=== PATIENT | female | born 1930 | race Caucasian/White ===

== ENCOUNTER 2018-02-18 10:07 | Observation (INO) | payer MEDICARE ==
[2018-02-18 11:06] LABS: #Lymphocytes 0.8 thou/uL (1.20-3.40); #Monocytes 0.6 thou/uL (0.11-0.59); #Neutrophils 8.7 thou/uL (1.40-6.50); %Basophils 0.2 % (0.0-1.0); %Eosinophils 0.1 % (0.0-10.0); %Lymphocytes 7.4 % (21.0-51.0); %Monocytes 6.4 % (0.0-10.0); %Neutrophils 85.9 % (42.0-75.0); Hemoglobin 13.8 g/dL (12.0-16.0); Mean Corpuscular HGB CONC 32.6 g/dL (32.0-36.0); Mean Corpuscular Hemoglobin 30.9 pg (27.0-31.0); Mean Platelet Volume 5.8 fL (7.4-10.4); Platelet Count 274 thou/uL (130-400); Red Blood Cell (RBC) Count 4.47 mill/uL (4.20-5.40); White Blood Cell (WBC) Count 10.1 thou/uL (4.8-10.8)
--- NOTE | 2018-02-18 11:06 | CT ---
CONTRAST ENHANCED CTA CAROTID ARTERIES WELL INTRACRANIAL CTA: HISTORY: Patient with stroke, unable to lift right arm. FINDINGS: Contrast-enhanced CTA images carotid arteries and intracranial CTA performed. Two-D and 3D reconstru cted images performed on an independent 3D work station. Images demonstrate ACDF plates and screws fusing the C4, 5, and 6 levels. Vertebral bodies are unremarkable. Multilevel mid lumbar facet degenerative changes seen. The soft tissue neck CT is unremarkable. CTA CAROTID: The aortic arch is unremarkable. The right brachiocephalic artery is unremarkable. The right and left common carotid arteries are unremarkable without evidence of significant stenosis. There is some moderate atherosclerotic plaque calcified and noncalcified in the left distal carotid and proximal left ICA and minimal calcified plaque in the right ICA and distal bulb. This results i n approximately 30-40% left distal CCA disease. No significant right-sided stenosis seen. Both vertebral arteries are patent. INTRACRANIAL CTA: The distal internal carotid arteries as well as supraclinoid ICAs are patent. The JAREK, MCA, and vert ebrobasilar arteries are unremarkable. The left hemispheric distal branches appear to be fairly symm etric. IMPRESSION: 1. Normal intracranial CTA. 2. Mild to moderate left distal common carotid artery and proximal left internal carotid artery dise ase. Findings discussed with Dr. Honeycutt at 10:44 a.m. on 02/18/18. CODE CR POS: HEATHER
[2018-02-18 11:21] LABS: ALT (SGPT) 24 U/L (8-55); AST (SGOT) 35 U/L (5-34); Albumin 4.2 g/dL (3.4-4.8); Alkaline Phosphatase 36 U/L (40-150); Anion Gap 13 mmol/L (10-20); BUN (Urea Nitrogen) 15 mg/dL (9.8-20.1); Bilirubin, Total 1.1 mg/dL (0.2-1.2); Calc. Creatinine Clearance 0 mL/min (70-130); Calcium 9.5 mg/dL (7.8-10.44); Carbon Dioxide 25 mmol/L (23-31); Chloride 101 mmol/L (98-107); Estimated GFR-MDRD 81; Globulin 2.9 g/dL (2.4-3.5); Glucose 94 mg/dL (83-110); Protein, Total 7.1 g/dL (6.0-8.3); Sodium 135 mmol/L (136-145)
[2018-02-18] MEDS ORDERED: ISOVUE-370 76%-LOCM 1 ML ONE (13:50)
--- NOTE | 2018-02-18 14:05 | HP ---
PRIMARY CARE PHYSICIAN: Dr. Cesar Handy REASON FOR ADMISSION: Weakness/syncope/dizziness. HISTORY OF PRESENT ILLNESS: An 87-year-old female who woke up this morning, at that time the patient was feeling generalized weak. She tried to get out of bed and she felt like she was going to pass o ut and that is why she sat down on the floor. Subsequently, the patient was having difficulty standi ng. She was feeling weak all over. She tried to scoot to the bed, but she was not able to do that. She was not able to use her right side. The patient reports that she has weakness on the right side for a period of time and she attributes to her arthritis. She also has difficulty combing and brush ing with the right hand because she cannot move right upper extremity all the way up. She gets pain in her right shoulder. She does have arthritis diffusely. She denied any isolated weakness on the r ight side. She does have similar problem on the left side, but less severe than on the right side. She was not having any palpitation. She felt dizziness as about going to pass out, but she did not f all. She did not injure. She did not have any headaches. She did not have any slurred speech. She denied any fever or chills. She denies any UTI symptoms. She denies any constipation, diarrhea, me winston or hematochezia. Paramedics were called and the patient was seen by paramedics and they found right-sided arm weakness and that is why they were worried about stroke and stroke protocol was activated from the ambulance and the patient had CT brain with a CT angiography that was negative for any stroke. CT angiography showed mild to moderate left distal common carotid artery and proximal left internal carotid artery d isease. The patient did not have any speech problem. Currently, patient is feeling back to normal. The patient does have a similar problem in 2014. At that time LINQ recorder was placed. Subsequentl y, the patient had seen meat cooler and per patient, she was told that everything was fine and patie nt also gives a history that for 1 year the meat cooler are not getting any recording. ALLERGIES: No known drug allergy. CURRENT HOME MEDICATIONS: Gabapentin 300 mg p.o. 3 times daily, amlodipine 5 mg p.o. daily, benazepr il 10 mg p.o. daily, aspirin 81 mg p.o. daily. REVIEW OF SYSTEMS: The following complete review of systems was negative, unless otherwise mentioned in the HPI or below: Constitutional: Weight loss or gain, ability to conduct usual activities. Skin: Rash, itching. Eyes: Double vision, pain. ENT/Mouth: Nose bleeding, neck stiffness, pain, tenderness. Cardiovascular: Palpitations, dyspnea on exertion, orthopnea. Respiratory: Shortness of breath, wheezing, cough, hemoptysis, fever or night sweats. Gastrointestinal: Poor appetite, abdominal pain, heartburn, nausea, vomiting, constipation, or diarrhea. Genitourinary: Urgency, frequency, dysuria, nocturia. Musculoskeletal: Pain, swelling. Neurologic/Psychiatric: Anxiety, depression. Allergy/Immunologic: Skin rash, bleeding tendency. Please see my HPI for pertinent positive and negative. All other review of systems reviewed and nega tive except as mentioned in the HPI. PAST MEDICAL HISTORY: Trigeminal neuralgia, hypertension. PAST SURGICAL HISTORY: LINQ recorder placed. The patient had surgery on her neck. Patient also had surgery for trigeminal neuralgia. PAST PSYCHIATRIC HISTORY: Reviewed and negative. SOCIAL HISTORY: The patient lives at home with family. No history of tobacco, alcohol or illicit dr ug abuse. FAMILY HISTORY: No strong family history of premature coronary artery disease, stroke or cancer. No family history of a sudden cardiac . EMERGENCY ROOM COURSE: Reviewed. PHYSICAL EXAMINATION: VITAL SIGNS: On arrival, blood pressure 155/104, pulse 86, respiratory rate 21, temperature 98.6, sa turation 96% on room air, weight 53.9 kilograms. GENERAL: The patient is currently alert, awake, no acute distress. HEENT: Head; normocephalic, atraumatic. Eyes: Pupils round, reactive to light. Extraocular muscle intact. ENT: Oropharynx within normal limits. Moist mucous membranes. No oral lesion, no pharyng eal erythema, no exudate. NECK: Supple, no JVD, no thyromegaly, no carotid bruit, no jugular venous distention. LUNGS: Clear to auscultation without any rhonchi or rales. CARDIAC: S1, S2 regular, soft systolic murmur present at the aortic area. No gallop, no rub. ABDOMEN: Soft, bowel sounds present, nontender, nondistended. No organomegaly, no mass, no suprapub ic tenderness. BACK: Unremarkable, no CVA tenderness. EXTREMITIES: Upper extremities, the patient does have restricted movement at right shoulder due to p ain from arthritis. Otherwise, passive movement of all joints are normal. Lower extremity, no edema . Good peripheral pulsation. SKIN: No skin rash. HEMATOLOGICAL: No lymphadenopathy. PSYCHIATRIC: Normal affect. NEUROLOGIC: The patient is alert, oriented x3. No focal neurological deficit noted. The patient's right-sided weakness is related with arthritis, but no motor weakness noted. Reflexes symmetrical bi laterally. Sensation intact. Plantar bilateral flexor. Speech normal. Cranial nerves II-XII intac t. SIGNIFICANT LABS: EKG showing atrial fibrillation with rate controlled ventricular response, nonspec ific ST-T changes. CT brain based on my review, no acute intracranial process. CT angiography circl e of [place] with brain perfusion study showed normal intracranial CT angiography, mild to moderate le ft and distal common carotid artery and proximal left internal carotid artery disease. CBC: WBC 10.1, hemoglobin 13.8, platelet 274. BMP: Sodium 135, potassium 4.0, chloride 101, carbon dioxide 25, anion gap 13, BUN 15, creatinine 0.69, glucose 94, calcium 9.5. Lactic acid 93, calcium 9.5, blood glucose 96. LFT: AST 35, ALT 24, alkaline phosphatase 36, albumin 4.2. ASSESSMENT AND PLAN: 1. Near syncope/syncope/dizziness and generalized weakness. Etiology uncertain. Episode cannot be explained based on history. The patient does not have any chest pain, palpitation or complete syncop e. Cardiac event less likely, but she does have LINQ recorder implanted in 2014. We will consult Ca rdiology for interrogation of the device if possible. The patient does not have any neurological def icit and her CT angiography and CT brain is unremarkable. We will check orthostatic vitals to rule o ut orthostatic hypotension. We will monitor on telemetry floor for another 24-48 hours. We will do serial cardiac enzymes x3 to rule out acute coronary syndrome. We will do neuro check, as well. 2. Hypertension. We will check orthostatic hypotension and continue amlodipine 5 mg p.o. daily, enrique azepril 10 mg p.o. daily. 3. Trigeminal neuralgia, currently stable. Continue gabapentin 300 mg three times daily. 4. Deep venous thrombosis prophylaxis not needed because we are expecting discharge in 24 hours. 5. Gastrointestinal prophylaxis, Pepcid 20 mg p.o. b.i.d. 6. Code status: The patient is full code. Patient's son is surrogate decision maker. 7. Carotid stenosis, left side. At this point, the patient does not need any surgical intervention. The patient will need medical therapy with aspirin. We will add a statin therapy. We will check l ipid profile tomorrow. The patient will need surveillance monitoring through CT surgeon or primary c are physician with carotid ultrasound as an outpatient basis. Disposition plan based on clinical course. We are expecting patient's stay in hospital [address] an of care discussed with the patient and family member at bedside in the emergency room.
[2018-02-18 14:22] LABS: Bilirubin Negative (Negative); Blood, Urine Small (Negative); Clarity CLEAR (Clear); Glucose, Urine (Dipstick) Negative (Negative); Leukocyte Negative (Negative); Nitrite Negative (Negative); Protein, Urine (Dipstick) Negative (Neg-Trace); Specific Gravity, Urine 1.036 (1.002-1.036)
[2018-02-18 14:24] LABS: Bacteria/HPF None Seen HPF (None Seen); Hyaline Casts/LPF 0-3 HYALINE CAST LPF (0-3 Hyaline); RBC/HPF 0-3 HPF (0-3); Squamous Epithelial None Seen HPF (0-3); WBC/HPF None Seen HPF (0-3)
--- NOTE | 2018-02-18 14:53 | CT ---
CT BRAIN: HISTORY: An 87-year-old with a history of unable to lift right arm. FINDINGS: Noncontrast-enhanced CT images of the brain obtained. There is mild cortical atrophy and deep white matter ischemic changes. No evidence of acute intracranial masses, hemorrhages, strokes, or contusions seen. Findings discussed with Dr. Honeycutt_at 10:19 a.m. on 02/18/18. CODE CR POS: HEATHER
[2018-02-18] MEDS ORDERED: Ondansetron HCl/PF 4 MG/2 ML Vial IVP PRN ×2 (16:53→16:57)
[2018-02-18] MEDS ORDERED: Ondansetron ODT 4 MG TAB SL PRN (16:53)
[2018-02-18] MEDS ORDERED: Acetaminophen 325 MG TAB PO PRN ×2 (16:53→16:57)
[2018-02-18] MEDS ORDERED: Ondansetron ODT 4 MG TAB PO PRN (16:57)
[2018-02-18] MEDS ORDERED: Artificial Tear Sol 15 ML BOT EA EYE PRN (16:57)
[2018-02-18] MEDS ORDERED: Loperamide HCl 2 MG CAP PO PRN (16:57)
[2018-02-18] MEDS ORDERED: HYDROcodone/Acetaminophen 5/325 mg Tablet PO PRN (16:57)
[2018-02-18] MEDS ORDERED: Diabetic Tussin 200 MG/10 ML UDCUP PO PRN (16:57)
[2018-02-18] MEDS ORDERED: Zolpidem Tartrate 5 MG TAB PO PRN (16:57)
[2018-02-18] MEDS ORDERED: Senokot 8.6 MG TAB PO PRN (16:57)
[2018-02-18] MEDS ORDERED: Mag-Al 1200 mg/1200 mg/30 ML UDCUP PO PRN (16:57)
[2018-02-18] MEDS ORDERED: Loratadine 10 MG TAB PO PRN (16:57)
[2018-02-18] MEDS ORDERED: Eucerin (Mineral Oil/Petrolatum,White) 30 gm Jar TOP PRN (16:57)
[2018-02-18] MEDS ORDERED: Milk Of Magnesia 30 ML UDCUP PO PRN (16:57)
[2018-02-18] MEDS ORDERED: Sodium Chloride 0.65% Nasal 44 ML BOT EA NARE PRN (16:57)
[2018-02-18] MEDS ORDERED: Chloraseptic Spray 180 ml Bottle PO PRN (16:57)
[2018-02-18] MEDS ORDERED: hydrALAZINE 20 MG/ML VIAL SLOW IVP PRN (16:57)
[2018-02-18 18:56] LABS: Troponin I 0.238 ng/mL (< 0.028)
[2018-02-18 18:57] LABS: CKMB 23.1 ng/mL (0-6.6)
--- NOTE | 2018-02-18 19:51 | CON ---
DATE OF CONSULTATION: 02/18/2018 REASON FOR CONSULTATION: Weakness. PRIMARY VIDEO CONTROL OPERATOR: Ernestine Skinner M.D. HISTORY OF PRESENT ILLNESS: Ms. Garcia is a very pleasant 87-year-old woman, who recently states s he had weakness spell. It is hard to pinpoint her actual symptoms. She states she has profound weak ness noted in the upper and lower extremities bilaterally. No chest pain or pressure noted. No shor tness of breath. She states she had difficulty getting to her bed. She was able to crawl to her bed and summoned 911. She states she does not have true syncope. During that time, the implantable loo p recorder did suggest a heart rate in the 180s to 190s. PAST MEDICAL HISTORY: Hypertension, cervical stenosis, trigeminal neuralgia. SOCIAL HISTORY: No current tobacco or alcohol use. FAMILY HISTORY: Negative for CAD. HOME MEDICATIONS: Gabapentin, amlodipine, benazepril and aspirin. REVIEW OF SYSTEMS: A 10- point review of systems is reviewed and as above, otherwise negative. PHYSICAL EXAMINATION: GENERAL: Patient is a pleasant female who is in no acute distress. The patient appears her stated a ge. VITAL SIGNS: Blood pressure 127/68, pulse 70, temperature 98.3. NEUROLOGIC: The patient is alert and oriented times 3 with no focal neurologic deficits. HEENT: Sclerae without icterus. Mouth has moist mucous membranes with normal pallor. NECK: No JVD. Carotid upstroke brisk. No bruits bilaterally. LUNGS: Clear to auscultation with unlabored respirations. BACK: No scoliosis or kyphosis. CARDIAC: Regular rate and rhythm with normal S1 and S2. No S3 or S4 noted. No significant rubs, mur murs, thrills, or gallops noted throughout the precordium. PMI is not displaced. There is no parast ernal heave. ABDOMEN: Soft, nontender, nondistended. No peritoneal signs present. No hepatosplenomegaly. No ab normal striae. EXTREMITIES: 2+ femoral and 2+ dorsalis pedis pulses. No cyanosis, clubbing, or edema. SKIN: No gross abnormalities. PERTINENT LABORATORY DATA: Hemoglobin 13.8, creatinine 0.69. IMPRESSION: 1. Weakness. 2. Tachycardia. RECOMMENDATIONS: Neurology consultation is pending. Her symptoms may have been related to her rhyth m noted on the LINQ, which was interrogated. There may be evidence of atrial fibrillation. The rate does appear irregular. It is hard to know whether as she is crawling on the floor cause her heart r ate increased or whether it is a true primary event. I consulted with EP for recommendations. Other sánchez, further recommendations per Dr. Ernestine Skinner in a.m.
[2018-02-18] MEDS ORDERED: Atorvastatin Calcium 10 MG TAB PO SCH (21:00)
[2018-02-18] MEDS: Gabapentin 300 MG CAP PO SCH (21:24)
[2018-02-18] MEDS: Famotidine 20 MG TAB PO SCH (21:24)
[2018-02-19 06:52] LABS: Cardiac Risk 2.9 (Less than 4.5); Magnesium 2.2 mg/dL (1.6-2.6); Phosphorus 3.4 mg/dL (2.3-4.7)
[2018-02-19 06:53] LABS: Troponin I 0.212 ng/mL (< 0.028)
[2018-02-19 07:01] LABS: CKMB 22.5 ng/mL (0-6.6); Critical Call CKMBM RESULT DECREASING
[2018-02-19] MEDS ORDERED: Amlodipine 5 MG TAB PO SCH (09:00)
[2018-02-19] MEDS: Famotidine 20 MG TAB PO SCH (09:15)
[2018-02-19] MEDS: Gabapentin 300 MG CAP PO SCH ×2 (09:15→18:04)
[2018-02-19] MEDS: Sodium Chloride 0.9% 1,000 ML IV SCH ×2 (09:21→18:04)
--- NOTE | 2018-02-19 10:34 | PDOC.PN ---
- Subjective Encounter Start Date: 02/19/18 Encounter Start Time: 07:20 -: old records requested/rev Patient seen and examined. No new complaints. No overnight events - Objective Resuscitation Status: Resuscitation Status FULL:Full Resuscitation MAR Reviewed: Yes Vital Signs & Weight: Vital Signs (12 hours) Temp Pulse Resp BP Pulse Ox 02/19/18 09:15 74 02/19/18 08:00 98.3 F 74 16 02/19/18 07:53 98.3 F 74 16 151/72 H 96 02/19/18 03:18 97.6 F 59 L 16 138/72 96 02/18/18 23:42 97.9 F 60 16 130/69 97 Weight Weight 1.926 oz I&O: 02/18/18 02/19/18 02/20/18 06:59 06:59 06:59 Intake Total 510 Balance 510 Result Diagrams: 02/18/18 10:50 02/18/18 10:50 EKG Reviewed by me: Yes Phys Exam - Physical Examination Constitutional: NAD HEENT: PERRLA, moist MMs, sclera anicteric Neck: no JVD, supple Respiratory: no wheezing, no rales, no rhonchi Cardiovascular: RRR, no significant murmur, no rub Gastrointestinal: soft, non-tender, no distention, positive bowel sounds Musculoskeletal: no edema, pulses present Neurological: non-focal, normal sensation Psychiatric: normal affect Skin: no rash, normal turgor Dx/Plan (1) Atrial fibrillation Code(s): I48.91 - UNSPECIFIED ATRIAL FIBRILLATION Status: Acute Qualifiers: Atrial fibrillation type: paroxysmal Qualified Code(s): I48.0 - Paroxysmal atrial fibrillation (2) Dizziness Code(s): R42 - DIZZINESS AND GIDDINESS Status: Acute Comment: may be related with problem -1 (3) Elevated troponin Code(s): R74.8 - ABNORMAL LEVELS OF OTHER SERUM ENZYMES Status: Acute Comment: due to rhabdomyolysis vs demand ischemia (4) Rhabdomyolysis Code(s): M62.82 - RHABDOMYOLYSIS Status: Acute (5) Carotid stenosis Code(s): I65.29 - OCCLUSION AND STENOSIS OF UNSPECIFIED CAROTID ARTERY Status : Chronic (6) Hypertension Code(s): I10 - ESSENTIAL (PRIMARY) HYPERTENSION Status: Chronic (7) Trigeminal neuralgia Code(s): G50.0 - TRIGEMINAL NEURALGIA Status: Chronic - Plan cont current plan of care * medication reviewed as below * symptomatic treatment * cardiology recommendation noted * As per cardiology, may need EP consult * start IVF for rhabdomyolysis * get echo today * ambulate and monitor on tele * discharge decision based on cardiology Review of Systems - Review of Systems ENT: negative: Ear Pain, Ear Discharge, Nose Pain, Nose Discharge, Nose Congestion, Mouth Pain, Mouth Swelling, Throat Pain, Throat Swelling, Other Respiratory: negative: Cough, Dry, Shortness of Breath, Hemoptysis, SOB with Excertion, Pleuritic Pain, Sputum, Wheezing Cardiovascular: negative: chest pain, palpitations, orthopnea, paroxysmal nocturnal dyspnea, edema, light headedness, other Gastrointestinal: negative: Nausea, Vomiting, Abdominal Pain, Diarrhea, Constipation, Melena, Hematochezia, Other Genitourinary: negative: Dysuria, Frequency, Incontinence, Hematuria, Retention , Other Musculoskeletal: negative: Neck Pain, Shoulder Pain, Arm Pain, Back Pain, Hand Pain, Leg Pain, Foot Pain, Other Skin: negative: Rash, Lesions, Elder, Bruising, Other - Medications/Allergies Allergies/Adverse Reactions: Allergies Allergy/AdvReac Type Severity Reaction Status Date / Time No Known Allergies Allergy Verified 02/01/15 15:47 Medications: Current Medications Acetaminophen (Tylenol) 650 mg PO Q4H PRN PRN Reason: Headache/Fever or Pain Hydrocodone Bitart/Acetaminophen ([place] 5/325) 1 tab PO Q4H PRN PRN Reason: Moderate Pain (4-6) Al Hydroxide/Mg Hydroxide (Maalox) 30 ml PO Q6H PRN PRN Reason: Heartburn or Indigestion Amlodipine Besylate (Norvasc) 5 mg PO DAILY [facility] Last Admin: 02/19/18 09:15 Dose: 5 mg Artificial Tears (Tears Renewed 15ml Bottle) 0 drop EA EYE PRN PRN PRN Reason: Dry Eyes Aspirin (Aspirin Chewable) 81 mg PO DAILY [facility] Last Admin: 02/19/18 09:15 Dose: 81 mg Atorvastatin Calcium (Lipitor) 10 mg PO HS [facility] Last Admin: 02/18/18 21:24 Dose: 10 mg Benazepril HCl (Lotensin) 10 mg PO DAILY [facility] Last Admin: 02/19/18 09:15 Dose: 10 mg Famotidine (Pepcid) 20 mg PO BID [facility] Last Admin: 02/19/18 09:15 Dose: 20 mg Gabapentin (Neurontin) 300 mg PO TID [facility] Last Admin: 02/19/18 09:15 Dose: Not Given Guaifenesin (Robitussin Sf) 200 mg PO Q4H PRN PRN Reason: Cough Hydralazine HCl (Apresoline) 10 mg SLOW IVP Q4H PRN PRN Reason: Systolic BP > 180 Sodium Chloride (Normal Saline 0.9%) 1,000 mls @ 100 mls/hr IV .Q10H [facility] Last Admin: 02/19/18 09:21 Dose: 1,000 mls Loperamide HCl (Imodium) 2 mg PO PRN PRN PRN Reason: Diarrhea/Loose Stools Loratadine (Claritin) 10 mg PO DAILYPRN PRN PRN Reason: Sinus Symptoms Magnesium Hydroxide (Milk Of Magnesium) 30 ml PO DAILYPRN PRN PRN Reason: Constipation Mineral Oil/White Petrolatum (Eucerin Cream) 0 gm TOP BIDPRN PRN PRN Reason: Dry Skin Ondansetron HCl (Zofran Odt) 4 mg PO Q6H PRN PRN Reason: Nausea/Vomiting Ondansetron HCl (Zofran) 4 mg IVP Q6H PRN PRN Reason: Nausea/Vomiting Phenol (Chloraseptic [place] 180 Ml Bot) 0 ml PO PRN PRN PRN Reason: Sore Throat Senna (Senokot) 2 tab PO HSPRN PRN PRN Reason: Constipation Sodium Chloride ([place] Nasal [place] 0.65%) 0 ml EA NARE QIDPRN PRN PRN Reason: Nasal Congestion Sodium Chloride (Flush - Normal Saline) 10 ml IVF Q12HR [facility] Last Admin: 02/19/18 09:16 Dose: 10 ml Sodium Chloride (Flush - Normal Saline) 10 ml IVF PRN PRN PRN Reason: Saline Flush Zolpidem Tartrate (Ambien) 5 mg PO HSPRN PRN PRN Reason: Insomnia
--- NOTE | 2018-02-19 14:47 | PDOC.CTH ---
<Geena Mendez - Last Filed: 02/19/18 14:45> Cardiology Progress Note - Subjective The pt seen and examined. No overnight events. No cardiac complaints. Bilat strength are equal. - Objective Vital Signs Temp Pulse Pulse Pulse Pulse Resp BP 02/19/18 11:55 97.7 F 90 18 02/19/18 11:08 86 91 85 88/61 L 02/19/18 09:15 74 02/19/18 08:00 98.3 F 74 16 02/19/18 07:53 98.3 F 74 16 02/19/18 03:18 97.6 F 59 L 16 BP BP BP Pulse Ox 02/19/18 11:55 93/75 98 02/19/18 11:08 106/84 97/64 02/19/18 09:15 02/19/18 08:00 02/19/18 07:53 151/72 H 96 02/19/18 03:18 138/72 96 Weight 1.926 oz 02/18/18 02/19/18 02/20/18 06:59 06:59 06:59 Intake Total 510 Balance 510 - Physical Examination General/Neuro: alert & oriented x3 Neck: no JVD present Lungs: CTA Abdomen: soft Extremities: other: (No edema) - Telemetry Telemetry Rhythm: SR - Labs Result Diagrams: 02/18/18 10:50 02/18/18 10:50 Troponin/CKMB CK-MB (CK-2) 22.5 ng/mL (0-6.6) H* 02/19/18 05:57 Troponin I 0.212 ng/mL (< 0.028) H 02/19/18 05:57 - Assessment/Plan 1. Atrial Tachycardia - total 3 episodes of Atrial tachycardia for 11-13 sec. She did not have syncope. 2. Dizziness - stable at this time 3. HTN - possible othostatic Hypotension? cont. to monitor 4. Rhabdomyolysis - on IV NS; managed by PCP MAR reviewed Review of Systems - Review of Systems Constitutional: reports: no symptoms reported EENTM: reports: no symptoms reported Respiratory: reports: no symptoms reported Cardiac (ROS): reports: no symptoms reported ABD/GI: reports: no symptoms reported : reports: no symptoms reported <Fariha Skinner - Last Filed: 02/19/18 15:43> Cardiology Progress Note - Objective Vital Signs Temp Pulse Pulse Pulse Pulse Resp BP 02/19/18 11:55 97.7 F 90 18 02/19/18 11:08 86 91 85 88/61 L 02/19/18 09:15 74 02/19/18 08:00 98.3 F 74 16 02/19/18 07:53 98.3 F 74 16 BP BP BP Pulse Ox 02/19/18 11:55 93/75 98 02/19/18 11:08 106/84 97/64 02/19/18 09:15 02/19/18 08:00 02/19/18 07:53 151/72 H 96 Weight 1.926 oz 02/18/18 02/19/18 02/20/18 06:59 06:59 06:59 Intake Total 510 Balance 510 - Labs Result Diagrams: 02/18/18 10:50 02/18/18 10:50 Troponin/CKMB CK-MB (CK-2) 22.5 ng/mL (0-6.6) H* 02/19/18 05:57 Troponin I 0.212 ng/mL (< 0.028) H 02/19/18 05:57 - Assessment/Plan pt. seen and eval. by me. I agree with the A/P by the FOOT MITER OPERATOR. Chest clear. RRR. The implanted loop recorder was evaluated and there are no significant arrhythmias. She did have a few seconds of tachycardia but this was likely when she was crawling on the floor. There is nothing to account for her symptoms. The echo indicates a nl. EF and mild MR,TR. From a cardiac standpoint she can be d/c'd at any time.
[2018-02-19 15:57] VITALS: BP 124/64; TEMP 97.5
--- NOTE | 2018-02-19 19:09 | DIS ---
DATE OF ADMISSION: 02/18/2018 DATE OF DISCHARGE: 02/19/2018 PRIMARY CARE PHYSICIAN: Cesar Handy M.D. DISCHARGE DISPOSITION: Rehabilitation. PRIMARY DISCHARGE DIAGNOSES: 1. Dizziness, unexplained. 2. Demand ischemia. 3. Rhabdomyolysis. 4. Paroxysmal atrial fibrillation. SECONDARY DISCHARGE DIAGNOSES: Hypertension and trigeminal neuralgia. PRIMARY PROCEDURE/OPERATION: None. RADIOLOGICAL INVESTIGATION: CT brain negative for any acute intracranial process. CT ken[place]ze of [place] is and CT angiography showed carotid stenosis. Echocardiography showed moderate mitral regurgitation , normal ejection fraction. SIGNIFICANT LABORATORY DATA: WBC 10.1, hemoglobin 13.8 and platelet 274. Sodium 135. CK 918. Trop onin 0.212. Electrolytes normal. LDL 107. TSH 1.35. Urinalysis normal. DISCHARGE MEDICATIONS: Aspirin 81 mg p.o. daily, amlodipine 5 mg p.o. daily, gabapentin 600 mg p.o. at bedtime and Lotensin 10 mg p.o. daily. CONTRAINDICATIONS: None. CODE STATUS: FULL CODE. INPATIENT CONSULTANTS: Dr. Skinner and Dr. Beltran was followed while in hospital. TEST RESULTS PENDING ON DISCHARGE: None. ALLERGIES: No known drug allergy. DISCHARGE PLAN: Post hospital, the patient will follow up with primary care physician and Dr. Susanne osullivan instructed. HOSPITAL COURSE: An 87-year-old female who was admitted by me. Please see my HPI for further detail . The patient was having dizziness and fall and suspected syncope versus transient ischemic attack a nd that is why she came to emergency room. The patient had a stroke workup and stroke alert in the e mergency room, which was unremarkable including CT ken[place]ze of [place], CT angiography of neck and CT br ain was unremarkable other than mild carotid stenosis. For that reason, the patient will need outpat ient surveillance monitoring with a CT surgeon or primary care physician. This patient has a loop re mohamud and that is why we consulted Cardiology to read and interrogate loop recorder, but there was n o significant arrhythmia noted. Echocardiography showed moderate mitral regurgitation and normal EF. This patient was qualifying for rehab based on PT, OT evaluation while in hospital and that is why with the help of protective services case worker, we arranged inpatient rehabilitation for her. Paper work for discharg e done. Discharge medication reconciliation done. The patient is not given statin therapy because o f high CK that can be started on followup visit. The patient is not a candidate for chronic long-ter m anticoagulation. Overall, the patient is medically stable for discharge. Please see my progress note from today for f urther detail.
== END 2018-02-19 19:09 ==
LOC: ERS 10:07 → 2SE 14:41
PROVIDERS: ADMIT Internal Medicine; ATTEND Internal Medicine
DX: R29.898 Other symptoms and signs involving the musculoskeletal system (principal); R42 Dizziness and giddiness; I24.8 Other forms of acute ischemic heart disease; M62.82 Rhabdomyolysis; I48.0 Paroxysmal atrial fibrillation; I10 Essential (primary) hypertension; G50.0 Trigeminal neuralgia; Z79.82 Long term (current) use of aspirin; Z79.899 Other long term (current) drug therapy
CPT/HCPCS: 70450; 70496; 70498; 80053; 80061; 82550 ×2; 82553 ×2; 82962; 83735; 84100; 84443; 84484 ×2; 85025; 85652; 93005; 93306; 97116; 97139; 99285; G0378; G8978; G8979; 36415; 36416; 81003; 81015; A4216

== ENCOUNTER 2018-06-21 06:28 | Emergency (ER) | payer MEDICARE ==
[2018-06-21 08:08] LABS: #Basophils 0.1 thou/uL (0.0-0.2); #Eosinphils 0.1 thou/uL (0.0-0.7); #Lymphocytes 0.9 thou/uL (1.20-3.40); #Monocytes 0.3 thou/uL (0.11-0.59); #Neutrophils 2.6 thou/uL (1.40-6.50); %Basophils 1.5 % (0.0-1.0); %Eosinophils 1.5 % (0.0-10.0); %Lymphocytes 23.5 % (21.0-51.0); %Monocytes 7.9 % (0.0-10.0); %Neutrophils 65.5 % (42.0-75.0); Mean Corpuscular HGB CONC 34.5 g/dL (32.0-36.0); Mean Corpuscular Hemoglobin 31.7 pg (27.0-31.0); Mean Platelet Volume 5.5 fL (7.4-10.4); Platelet Count 306 thou/uL (130-400); RBC Distribution Width 11.6 % (11.5-14.5); Red Blood Cell (RBC) Count 4.11 mill/uL (4.20-5.40)
[2018-06-21 08:22] LABS: ALT (SGPT) 9 U/L (8-55); AST (SGOT) 13 U/L (5-34); Alkaline Phosphatase 34 U/L (40-150); Anion Gap 10 mmol/L (10-20); BUN (Urea Nitrogen) 14 mg/dL (9.8-20.1); Bilirubin, Total 0.6 mg/dL (0.2-1.2); Calc. Creatinine Clearance 0 mL/min (70-130); Calcium 9.4 mg/dL (7.8-10.44); Carbon Dioxide 28 mmol/L (23-31); Chloride 103 mmol/L (98-107); Estimated GFR-MDRD 80; Globulin 2.9 g/dL (2.4-3.5); Glucose 92 mg/dL (83-110); Potassium 4.2 mmol/L (3.5-5.1); Protein, Total 6.9 g/dL (6.0-8.3); Sodium 137 mmol/L (136-145)
[2018-06-21] MEDS ORDERED: predniSONE 20 MG TAB ONE (10:20)
--- NOTE | 2018-06-21 10:30 | CT ---
CT HEAD WITHOUT CONTRAST: Multiple axial tomograms were obtained through the head without IV enhancement. HISTORY: Right side weakness. Body stiffness. COMPARISON: Comparison is made to head CT of 01/16/15. FINDINGS: Mild cortical atrophy. Moderate chronic ischemic white matter change. Ischemic changes in the basal ganglia and within the internal capsules appear stable. There is no evidence of acute hemorrhage, m ass, or cortical infarct. Sinuses and mastoids are aerated. IMPRESSION: No acute process identified. POS: [facility]
== END 2018-06-21 10:59 | disposition home or self-care (01) ==
LOC: ERS 06:28
DX: M13.811 Other specified arthritis, right shoulder (principal); M25.611 Stiffness of right shoulder, not elsewhere classified; Z79.82 Long term (current) use of aspirin; Z79.899 Other long term (current) drug therapy
CPT/HCPCS: 36415; 70450; 80053; 85025; 85652; 86140; J7506

== ENCOUNTER 2018-11-14 10:51 | Inpatient (IN) | payer MEDICARE ==
[2018-11-14 11:34] LABS: Bilirubin Small (Negative); Blood, Urine Small (Negative); Clarity CLOUDY (Clear); Glucose, Urine (Dipstick) 100 mg/dL (Negative); Leukocyte Moderate (Negative); Nitrite Positive (Negative); Protein, Urine (Dipstick) 30 mg/dL (Neg-Trace); Specific Gravity, Urine 1.031 (1.002-1.036); Urobilinogen 0.2 mg/dL (0.2-1.0); pH, Urine 5.5 (5.0-9.0)
[2018-11-14 11:40] LABS: Bacteria/HPF Rare-Few HPF (None Seen); Hyaline Casts/LPF 4-6 HYALINE CAST LPF (0-3 Hyaline); Pathc Cast-AUWi Flag 1.01 (0-2.49); Squamous Epithelial None Seen HPF (0-3)
[2018-11-14 11:43] LABS: Band 67 % (5-11); Hemoglobin 9.1 g/dL (12.0-16.0); Lymphocytes 13 % (21-51); MDiff Complete? YES; Mean Corpuscular HGB CONC 34.1 g/dL (32.0-36.0); Mean Corpuscular Hemoglobin 31.4 pg (27.0-31.0); Mean Corpuscular Volume 91.8 fL (78.0-98.0); Mean Platelet Volume 5.8 fL (7.4-10.4); Metamyelocyte 6 % (0-0); Monocytes 2 % (0-10); Neutrophil 12 % (42-75); Platelet Count 409 thou/uL (130-400); RBC Distribution Width 12.7 % (11.5-14.5); Red Blood Cell (RBC) Count 2.89 mill/uL (4.20-5.40); Reflex for Review?? YES; Vacuoles SLIGHT; White Blood Cell (WBC) Count 6.9 thou/uL (4.8-10.8)
[2018-11-14 11:52] LABS: RBC/HPF 0-3 HPF (0-3)
--- NOTE | 2018-11-14 11:56 | RAD ---
CHEST 1 VIEW: Date: 11/14/18 HISTORY: Emergency exam. COMPARISON: 01/16/15. FINDINGS: There is elevation of right hemidiaphragm. There is paucity of free air under the right hemidiaphragm versus interposition of bowel. No pneumothorax. Left basilar opacity. IMPRESSION: 1. Elevation of right hemidiaphragm with either interposition of bowel versus free air. Either a CT or a 2 view versus left lateral decubitus view is recommended. 2. Left basilar opacity concerning for infection. CODE T. POS: [facility]
[2018-11-14 12:00] LABS: ALT (SGPT) 11 U/L (8-55); AST (SGOT) 16 U/L (5-34); Albumin 2.8 g/dL (3.4-4.8); Alkaline Phosphatase 22 U/L (40-150); Anion Gap 15 mmol/L (10-20); BUN (Urea Nitrogen) 24 mg/dL (9.8-20.1); Bilirubin, Total 0.6 mg/dL (0.2-1.2); Calc. Creatinine Clearance 0 mL/min (70-130); Calcium 8.3 mg/dL (7.8-10.44); Carbon Dioxide 19 mmol/L (23-31); Chloride 93 mmol/L (98-107); Estimated GFR-MDRD 34; Globulin 2.4 g/dL (2.4-3.5); Glucose 99 mg/dL (83-110); Potassium 5.1 mmol/L (3.5-5.1); Protein, Total 5.2 g/dL (6.0-8.3); Sodium 122 mmol/L (136-145)
[2018-11-14] MEDS ORDERED: cefTRIAXone\\ROCEPHIN 2 GM VIAL ONE ×2 (12:33→12:35)
[2018-11-14] MEDS ORDERED: Sodium Chloride 0.9% 100 ML ONE (12:35)
[2018-11-14 12:46] LABS: CKMB 6.8 ng/mL (0-6.6)
[2018-11-14] MEDS ORDERED: SODIUM CHLORIDE 0.9% IVPB SCH (13:45)
[2018-11-14] MEDS ORDERED: GENTAMICIN SULFATE IVPB SCH (13:45)
[2018-11-14] MEDS ORDERED: Acetaminophen 325 MG TAB PO PRN (14:10)
[2018-11-14 15:25] LABS: CKMB 16.4 ng/mL (0-6.6)
[2018-11-14 17:26] LABS: Lactic Acid 2.9 mmol/L (0.5-2.2)
[2018-11-14] MEDS: MEROPENEM 1 GM/50 ML 1 GM in Premix Bag 1 BAG IVPB SCH ×2 (18:29→22:14)
[2018-11-14] MEDS: Heparin 5,000 UNITS/ML VIAL SC SCH ×2 (18:30→21:54)
[2018-11-14] MEDS: Sodium Chloride 0.9% 1,000 ML IV SCH (18:35)
[2018-11-14] MEDS ORDERED: Prevnar 13-Val Conj/PF 0.5 ML SYRINGE IM ONE (21:00)
--- NOTE | 2018-11-14 21:41 | ULT ---
BILATERAL RENAL ULTRASOUND WITH GRAYSCALE AND DOPPLER COLOR-FLOW IMAGING: CLINICAL HISTORY: Sepsis. FINDINGS: The left kidney demonstrates a length, as demonstrated, between 10 and 11 cm and the right kidney bet ween 9 and 10 cm. There is no overt hydronephrosis. There are scattered hypoechoic foci of the arie l parenchyma bilaterally, compatible with cysts, the dominant of which, within each kidney, measures slightly greater than 4 cm. Evaluation of the urinary bladder reveals subtle internal increased echogenicity, likely sediment/irene ris. The bladder is incompletely distended, which limits assessment. There is mild scattered intraa bdominal ascites. IMPRESSION: 1, No overt hydronephrosis of either kidney. 2. Scattered bilateral renal cysts. 3. Sedimentation/debris of the urinary bladder lumen. 4. Mild ascites. POS: [facility]
--- NOTE | 2018-11-14 21:44 | HP ---
CHIEF COMPLAINT: Altered mental status. HISTORY OF PRESENT ILLNESS: The patient is an 88-year-old female, who was brought to the emergency room because the family was not able to arouse her this morning. Apparently, she has been taking some tramadol for the last couple of days and thus she was constipated from this medication. She had some enema, magnesium citrate and then finally she had the BM and this morning, they were not able to wake her up and they made decision to take her to the emergency room for further evaluation. Apparently, the EMS was called and the blood pressure was very low, and so she was given 500 mL of fluids, then she was taken to the emergency room for further evaluation. While in the emergency room at [facility], she received 1000 mL of normal saline. Eventually, she did not have any fever or chills. There was no any shortness of breath. She received Rocephin and vancomycin in the emergency room. Her glazier helper was Dr. Skinner, but she saw her only one time. Her primary doctor is Dr. Handy and surrogate decision maker is her daughter, Nicolle Ricketts. PAST MEDICAL HISTORY: Positive for; 1. Trigeminal neuralgia. 2. Paroxysmal atrial fibrillation. 3. Hypertension. PAST SURGICAL HISTORY: 1. LINQ recorder placement. 2. Neck surgery. 3. Surgery for trigeminal neuralgia. SOCIAL HISTORY: She does not have any history of alcohol intake, cigarette smoking, or illicit drug use. FAMILY HISTORY: Both parents at the age of 84 of heart conditions. MEDICATIONS: 1. Meloxicam 15 mg once a day. 2. Gabapentin 300 mg three times a day. 3. Amlodipine 5 mg once a day. 4. Aspirin 81 mg once a day. 5. Benazepril 10 mg once a day. ALLERGIES: NONE. REVIEW OF SYSTEMS: All 14 systems were reviewed and they are only positive for right-sided progressive dysfunction to the point that she is not able to move her right side at all and significant change in her left upper extremity function which is progressively getting worse too. She denied any dysuria, but according to the daughter, she does not have much feeling in the urethra area. PHYSICAL EXAMINATION: VITAL SIGNS: Blood pressure is 96/54 after 2-1/2 L, her temperature is 99.8, respiratory rate is 18, and pulse is 100. HEENT: Head is atraumatic and normocephalic. Eyes are PERRLA. Sclerae are nonicteric. Conjunctivae palish. Oral mucosa is dry. NECK: Supple. No lymphadenopathy. Thyroid is not palpable. LUNGS: Clear. HEART: S1, S2, somewhat tachycardic. No S3. No S4. ABDOMEN: Soft, mildly distended, nontender. Bowel sounds are present. No organomegaly. EXTREMITIES: No clubbing, cyanosis, or edema. 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 She understands. She follows my commands. SKIN: No rash or erythema. LABORATORY DATA: Labs showed a white count of 6.9, hemoglobin of 9.1, hematocrit 26.6, platelet count 409, neutrophils 12, and bands 67%. Sodium of 122, potassium 5.1, chloride 93, CO2 of 19, BUN 24, creatinine 1.47. Lactic acid 3.2, alkaline phosphatase 22, CK-MB 6.8, troponin I 0.043. Total protein 5.2, albumin 2.8. Urinalysis showed trace of protein, 100 of glucose, small amount of blood, positive nitrites, small amount of bilirubin, moderate leukocyte esterase, greater than 50 to TNTC wbc's, 4 to 6 hyaline cast. EKG showed sinus tachycardia at 101 and no any significant abnormalities. Chest x-ray was personally reviewed by me, which showed some elevation of the right hemidiaphragm of unclear etiology and glazier helper have the question whether there was some intussusception of bowel versus free air, but clinically this does not look like anything from abdominal area as a source. Also, there was left basilar opacity concerning for infection. IMPRESSION: 1. Sepsis, source urinary tract infection. 2. Hyponatremia and hypochloremia. This is most likely just dehydration. Clinically, she looks dry and she had 2500 mL of water. 3. Renal failure, acute, most likely her creatinine was fine in February 2018. 4. Elevated troponin I 0.043. We will obtain additional 2 sets. 5. History of hypertension. 6. History of some cardiac arrhythmia, which was most likely paroxysmal atrial fibrillation. PLAN: Admission to [facility]. Condition is guarded. IV fluids, normal saline at 100 mL/h with boluses p.r.n. for MAP less than 65. Meropenem one dose in the emergency room 1 g, then q.8 hours IV piggyback. Blood cultures were done. Urine culture was done. Hold her home medications. We are going to keep her on DVT prophylaxis with SCDs and heparin 5000 units every 8 hours. She will see Pulmonary/test specialist, Dr. oNrris. At this point, she is full code. Check her lactic acid in next few hours and see how much progress we made in the treatment of this nice patient. Job ID: [id number]
[2018-11-14] MEDS ORDERED: Sodium Chloride 0.9% 1,000 ML IV SCH (22:45)
[2018-11-15] MEDS: Sodium Chloride 0.9% 1,000 ML IV SCH ×3 (01:43→14:12)
[2018-11-15 02:52] LABS: Actual Bicarbonate (HCO3a) 22.3 mEq/L (22-28); Base Excess (BEa) -2.4 mEq/L (-2.0 to +3.0); CO2 Tension 37.9 mmHg (35.0-45.0); Carboxyhemoglobin (COHb) 1.7 gm% (0.0-3.0); Hemoglobin (Hb) 8.2 g/dL (12.0-16.0); Potassium - ABG Lab 4.53 mmol/L (3.70-5.30); pH, Arterial 7.39 (7.35-7.45)
[2018-11-15 02:57] LABS: O2 Tension (PaO2) 44.5 mmHg (> 60.0); Puncture Site RBRACH
[2018-11-15 05:16] LABS: Anion Gap 13 mmol/L (10-20); BUN (Urea Nitrogen) 31 mg/dL (9.8-20.1); Calc. Creatinine Clearance 32 mL/min (70-130); Calcium 7.8 mg/dL (7.8-10.44); Carbon Dioxide 19 mmol/L (23-31); Chloride 97 mmol/L (98-107); Estimated GFR-MDRD 42; Glucose 97 mg/dL (83-110); Potassium 4.7 mmol/L (3.5-5.1); Sodium 124 mmol/L (136-145)
[2018-11-15 05:19] LABS: Band 69 % (5-11); Hemoglobin 7.3 g/dL (12.0-16.0); Lymphocytes 4 % (21-51); MDiff Complete? YES; Mean Corpuscular Hemoglobin 30.5 pg (27.0-31.0); Mean Corpuscular Volume 92.5 fL (78.0-98.0); Mean Platelet Volume 5.8 fL (7.4-10.4); Metamyelocyte 2 % (0-0); Monocytes 2 % (0-10); Neutrophil 23 % (42-75); Platelet Count 390 thou/uL (130-400); RBC Distribution Width 12.8 % (11.5-14.5); White Blood Cell (WBC) Count 13.3 thou/uL (4.8-10.8)
[2018-11-15] MEDS: MEROPENEM 1 GM/50 ML 1 GM in Premix Bag 1 BAG IVPB SCH (06:29)
[2018-11-15] MEDS: Heparin 5,000 UNITS/ML VIAL SC SCH ×3 (09:08→21:00)
[2018-11-15 11:11] VITALS: BMI 26.9
[2018-11-15] MEDS ORDERED: Iopamidol 370 76% 100 ML VIAL ONE (11:59)
--- NOTE | 2018-11-15 12:52 | CT ---
CT CHEST WITH CONTRAST: Technique: Multiple axial tomograms were obtained through the chest with multiplanar reconstructions. History: Abnormal chest film. Chest film shows bibasilar opacification, evidence of free intraperiton eal air. FINDINGS: There are moderate sized bilateral pleural effusions, larger on the right. There is associated bibasi lar lung atelectasis. There is evidence of ascites with fluid under both hemidiaphragms. Numerous extraluminal gas pockets are seen under the right hemidiaphragm consistent with free intraperitoneal air. IMPRESSION: 1. Ascites is seen in the upper abdomen with free air under the right hemidiaphragm. 2. Bilateral pleural effusions with bibasilar lung atelectasis. Dr. Waldron was paged for notification at the time of this dictation. Findings also relayed to Dahlia, patient's nurse at [facility]. POS: [facility]
[2018-11-15] MEDS ORDERED: Sodium Chloride 0.9% 1,000 ML IV SCH (13:28)
--- NOTE | 2018-11-15 13:56 | PRG ---
DATE OF SERVICE: 11/15/2018 I have spent time with Latoya Garcia's daughter and son given treatment options. Considering the patient's poor performance status, family desires DNR. They desire nonoperative therapy for this pneumoperitoneum and peritonitis. I have ordered hospice care have canceled laboratories, antibiotics, transfusions, and we will offer hospice type care inpatient or outpatient. Per their decision, we will consult Palliative Care. We will order DNR. Job ID: [id number]
[2018-11-15] MEDS ORDERED: Meropenem 1 GM in Sodium Chloride 0.9% 100 ML IVPB SCH (14:00)
--- NOTE | 2018-11-15 14:05 | HP ---
HISTORY OF PRESENT ILLNESS: Latoya Garcia is an 88-year-old female who has had cervical spine problems. She had an ORIF of her cervical spine years past. She has had problems with trigeminal neuralgia and has had an operation for that. She has had deteriorated function at home. She has 24-hour day caregivers at home. The patient has been nonambulatory for some time now. She has had progressive deterioration in her motor skills and becoming weak in her legs and arms such that people have had to help feed her. The patient fell at home and could not get up and was admitted by the hospitalist service. On admission, she had a chest x-ray demonstrating what appeared to be free air and in fact the report suggested free air and that a CAT scan be performed to rule that out. She was admitted yesterday at noon. Apparently, the patient was taking tramadol for what she thought was constipation. She had a bowel movement on admission yesterday morning and the family could not wake her up. Hence they brought her to the emergency room. She was hypotensive, systolic blood pressure 70. She was given 500 mL bolus and her pressure improved to 80 to 90. She was admitted to the [facility]. She is given Rocephin. Dr. Handy is her primary doctor, Dr. Skinner, her supervisor mail carriers. The patient has had problems with falls in the past, has been evaluated, thought maybe to have atrial fibrillation. Family tells me that loop recorder did not reveal any episodes of atrial fibrillation. She is not on any anticoagulation. She is treated for hypertension and they do list a diagnosis of paroxysmal atrial fibrillation, but the family denies this. SOCIAL HISTORY: Tobacco, none. Alcohol none. The patient's heart rate is 110, blood pressure 110/70. MEDICATIONS: At home 15 mg a day, gabapentin 300 mg three times a day, amlodipine 5 mg a day, aspirin 81 mg a day, benazepril 10 mg a day. PAST MEDICAL HISTORY: ORIF cervical spine, cervical stenosis, loop recorder placed. Otherwise, no operations. PHYSICAL EXAMINATION: VITAL SIGNS: Temperature 99.2 degrees, heart rate 110, respiratory rate 23 to 24, saturations 89%. Currently blood pressure 114/71, earlier this morning 7 o'clock 92/50 it has been in the low 90s most of this admission. LUNGS: Clear to auscultation. Diminished in the bases. CARDIAC: Sinus tachycardia, mild. ABDOMEN: Soft, tympanitic. Mild tenderness without rebound tenderness. EXTREMITIES: Weak in all extremities. LABORATORY DATA: Sodium 124, potassium 4.7, chloride 97, BUN 31, creatinine 1.22, glucose 97. Lactic acid 2.9. CK-MB 16.4. White count 13, hemoglobin 7.3. Her differential, she had a 67% band count on admission yesterday at 10:00 a.m. This morning is 69% band count. CAT scan of the chest obtained this morning reveals abundant free air, subdiaphragmatic and free fluid. Renal ultrasound obtained this admission reveals mild ascites, bilateral renal cysts. No hydronephrosis. ASSESSMENT AND PLAN: Perforated viscus with pneumoperitoneum. The patient's pain response and exam is blunted by her cervical spine progressive neurological deterioration. She has a poor performance level at home and is not able to ambulate or do anything for herself at home. She has 24 hour day caregivers who feed her and move her around. The patient was hospitalized recently, refused to go to rehab, insisted on going home, said she would participate with therapy at home, but refused. I have discussed these issues with the patient's daughter and her son has arrived. We had a discussion regarding treatment options. Treatment options include determining code status, establishing DNR. How to treat the pneumoperitoneum and I have given them options of nonoperative hospice palliative care versus intervention to see how she does, that we would of course suspend the DNR should operative intervention be performed. At this point, the family is discussing their wishes. I have informed the family that postoperatively she will be on the ventilator and it is likely she would need to go to a residential where an LTAC and considerations for tracheostomy and feeding tube might be necessary. The patient has poor IV access. If she goes to operating room, she will need a central line, Barker catheter, and arterial line. She will certainly be on the ventilator postoperatively. Family is considering these issues and we will await their decision, palliative care has been ordered. She is anemic and have I ordered 4 units of blood typed and crossed in order to transfuse, while awaiting the family to make their decision. Job ID: [id number]
--- NOTE | 2018-11-15 14:12 | PRG ---
DATE OF SERVICE: 11/15/2018 SUBJECTIVE: The patient is seen and examined at the bedside. She is in [facility], bed 5. Her daughter is present during my visit. Apparently, the patient became quite confused overnight. OBJECTIVE: VITAL SIGNS: Blood pressure is 114/71; temperature is 99.2, maximal temperature 99.2; pulse is 104; respiratory rate is 23; O2 saturation is 89% on venturi mask. HEENT: Her sclerae are nonicteric. Pupils are responding to light properly. Conjunctiva is palish. Oral mucosa is moist. LUNGS: Breath sounds diminished at both bases. HEART: S1 and S2. Tachycardic. No S3. No S4. ABDOMEN: Soft, nontender, and nondistended. EXTREMITIES: No clubbing, cyanosis, or edema. NEUROLOGIC: She is alert and oriented x0. She follows my commands. I do not see any focal deficits. LABORATORY DATA: Labs showed white count of 13.3, hemoglobin 7.3, hematocrit 22.2, neutrophils 23, 69 bands. Sodium 124, potassium 4.7, chloride 97, CO2 of 19, BUN 31, creatinine 1.22. The rest of chemistry within normal limits. Microbiology showed coagulase-negative staphylococcus, one out of two cultures most likely a contaminant. Urine culture, presumptive Pseudomonas that is urine straight cathed, more than 100,000 colonies. Ultrasound of the kidney showed no overt hydronephrosis of either kidney, scattered bilateral renal cysts and sedimentation/debris in the urinary bladder lumen with mild ascites. IMPRESSION: 1. Sepsis source is most likely urinary tract infection, which is draining Pseudomonas. We will switch her to ceftazidime. 2. Hyponatremia and hypochloremia. The patient received a lot of fluids. We will obtain Nephrology consultation with Dr. Stanton. 3. Renal failure. 4. Mental status most likely related to sepsis or ICU. 5. Normocytic anemia. Her hemoglobin dropped from 9.1 to 7.3. This is probably most likely dilutional since she received approximately 3 L of water resuscitation. 6. Respiratory failure. That is most likely secondary to a lot of fluids she received. She was switched to a Ventimask because of pO2 was down to 44.5 on ABGs done last night. PLAN: As I mentioned above, we will switch her to ceftazidime to a more specific treatment of her urosepsis. We will obtain consultation with Critical Care and Pulmonary, Dr. Waldron. We will get Nephrology consultation, Dr. Palomo/Dr. Stanton. Try to cut back on her IV fluids now since her blood pressure is doing better and we might transfuse her with 1 unit of packed red blood cells and continue our critical care. Job ID: [id number]
--- NOTE | 2018-11-15 15:46 | CON ---
DATE OF CONSULTATION: HISTORY OF PRESENT ILLNESS: She is an elderly 88-year-old female from [place], [place], who as per the daughter's history, who is at the bedside states that she was constipated issues with the bowel. She took some tramadol, apparently was unable to arouse and brought to the hospital. She has a 24/7 caregiver in [place], [place]. She has not walked for a period of time, extremely weak. Apparently, she has never smoke. No prior history of TB, pneumonia, or bronchial asthma. PAST MEDICAL HISTORY: Pertinent mainly for a trigeminal neurologia, hypertension, and marked weakness. PAST SURGICAL HISTORY: Previous surgeries, cervical surgery. MEDICATIONS: Medicines from home includes; 1. Gabapentin 600 once a day. 2. Lotensin 10 mg a day. 3. Aspirin. 4. Amlodipine 5. ALLERGIES: NONE. SOCIAL HISTORY: Tobacco, none. Alcohol, none. REVIEW OF SYSTEMS: Otherwise unremarkable. PHYSICAL EXAMINATION: GENERAL: The patient is awake, alert, and responsive. VITAL SIGNS: Saturations are 88 to 90 on 50% Ventimask, temperature 99, , and blood pressure 92/50. CHEST: Decreased breath sounds. Minimal crackles. CARDIAC: Sinus tach. ABDOMEN: Soft without any masses. LABORATORY DATA: A pO2 was 45, pCO2 was 36 on 4 L last night. Creatinine is 1.2 and sodium is 124. IMPRESSION: 1. Metabolic encephalopathy. 2. Renal failure. 3. Hypoxemia. 4. Abnormal chest x-ray. He has got free air in the abdomen or large bilateral bullous disease, acute respiratory failure. PLAN: Started neb treatment and steroids. CT of the chest being ordered. Further recommendation after above. TIME SPENT: This is a 45-minute critical care time. Job ID: [id number]
[2018-11-15] MEDS ORDERED: metroNIDAZOLE 500 MG in Premix Bag 1 BAG IVPB SCH (18:00)
[2018-11-15] MEDS ORDERED: Cefepime 2 GM in Sodium Chloride 0.9% 100 ML IVPB SCH (21:00)
[2018-11-15] MEDS ORDERED: Acetaminophen 500 MG TAB PO PRN (23:09)
[2018-11-15] MEDS ORDERED: Ondansetron PF 4 MG/2 ML Vial IVP PRN (23:09)
[2018-11-15] MEDS ORDERED: Ondansetron ODT 8 MG TAB PO PRN (23:09)
[2018-11-15] MEDS ORDERED: Ketorolac Tromethamine 30 MG/ML VIAL IVP PRN (23:09)
[2018-11-15] MEDS ORDERED: Morphine 2 MG/ML SYRINGE SLOW IVP PRN (23:09)
[2018-11-15] MEDS ORDERED: Morphine 4 MG/ML VIAL SLOW IVP PRN (23:09)
[2018-11-15] MEDS ORDERED: Ondansetron ODT 4 MG TAB PO PRN (23:09)
[2018-11-15] MEDS ORDERED: Acetaminophen 1,000 MG in Premix Bag 1 BAG IVPB PRN (23:09)
[2018-11-15] MEDS ORDERED: Ondansetron ODT 8 MG TAB SL PRN (23:09)
--- NOTE | 2018-11-16 00:34 | CON ---
DATE OF CONSULTATION: 11/15/2018 TYPE OF CONSULTATION: Nephrology. CONSULTING PHYSICIAN: Dr. Aparicio. REASON FOR CONSULT: Hyponatremia, JOHN. REASON FOR ADMISSION: Altered mental status. HISTORY OF PRESENT ILLNESS: An 88-year-old female with history of paroxysmal atrial fibrillation, hypertension, came to the hospital with altered mentation and was found to have pneumoperitoneum and family is deciding for hospice. Nephrology was consulted for acute kidney injury and hyponatremia. The patient was on IV fluids and was getting better. PAST MEDICAL HISTORY: Positive for trigeminal neurologia, atrial fibrillation, and hypertension. PAST SURGICAL HISTORY: Recorder and neck surgery and surgery for trigeminal neuralgia. HOME MEDICATIONS: 1. Meloxicam. 2. Gabapentin. 3. Amlodipine. 4. Aspirin. 5. Benazepril. ALLERGIES: NO KNOWN DRUG ALLERGIES. SOCIAL HISTORY: No smoking, alcohol, or illicit drugs. FAMILY HISTORY: No history of any kidney disease. REVIEW OF SYSTEMS: CONSTITUTIONAL: Negative for weight loss or gain, ability to conduct usual activities. SKIN: Negative for rash, itching. EYES: Negative for double vision, pain. ENT/MOUTH: Negative for nose bleeding, neck stiffness, pain, tenderness. CARDIOVASCULAR: Negative for palpitations, dyspnea on exertion, orthopnea. RESPIRATORY: Negative for shortness of breath, wheezing, cough, hemoptysis, fever or night sweats. GASTROINTESTINAL: Negative for poor appetite, abdominal pain, heartburn, nausea, vomiting, constipation, or diarrhea. GENITOURINARY: Negative for urgency, frequency, dysuria, nocturia. MUSCULOSKELETAL: Negative for pain, swelling. NEUROLOGIC/PSYCHIATRIC: Negative for anxiety, depression. ALLERGY/IMMUNOLOGIC: Negative for skin rash, bleeding tendency. PHYSICAL EXAMINATION: GENERAL: Reveals an elderly female, in no apparent distress. VITAL SIGNS: Temperature 99.2, pulse 104, respiratory rate 23, and blood pressure 114/71. HEENT: Atraumatic, normocephalic. Oral mucosa is moist NECK: Supple. CARDIOVASCULAR: S1, S2 heard. Rate and rhythm regular. RESPIRATORY: Clear. GASTROINTESTINAL: Abdomen is soft. MUSCULOSKELETAL: 1+ edema. DERMATOLOGIC: No skin rash. NEUROLOGIC: Alert and awake. PSYCHIATRIC: Normal mood and affect. LABORATORY DATA: Hemoglobin is 7.3. Potassium is 4.7, BUN is 31, and creatinine is 1.2. ASSESSMENT AND PLAN: 1. Acute kidney injury, better. 2. Hyponatremia, better with IV fluids. 3. Metabolic acidosis. 4. Perforated viscus with pneumoperitoneum, poor surgical candidate. Family decided to have hospice care. I will sign off. Please call back with any questions. Job ID: [id number]
[2018-11-16 04:14] VITALS: BP 124/72; TEMP 98.7
--- NOTE | 2018-11-16 10:18 | PQF ---
CHAR GRAY ZBIGNIEW A MD [id number] JODY WISEMAN [id number] CLINICAL DOCUMENTATION IMPROVEMENT CLARIFICATION FORM: ICD-10 Updated PLEASE DO AN ADDENDUM TO THE PROGRESS NOTE WITH ANY DOCUMENTATION UPDATES OR ADDITIONS AND CARRY THROUGH TO DC SUMMARY. THANK YOU. DATE: 11/16/2018 ATTN: DR. JOHNSON Please exercise your independent, professional judgment in responding to the clarification form. Clinical indicators are provided on the bottom of this form for your review Please check appropriate box(s): [ x ] Acute Respiratory Failure: [ ] with Hypoxia[ ] with Hypercapnia [ ] Acute On Chronic Respiratory Failure: [ ] with Hypoxia [ ] with Hypercapnia [ ] Other diagnosis [ ] Unable to determine For continuity of documentation, please document condition throughout progress notes and discharge summary. Thank You. CLINICAL INDICATORS - SIGNS / SYMPTOMS / LABS 11/15 Progress Note includes diagnosis: Respiratory Failure most likely secondary to a lot of IV fluids given. 11/15 Progress Note also includes: 02 sat 89% on Venturi Mask RISK FACTORS Difficult to arouse by family Given IV fluids due to Acute Kidney Injury and UTI in the setting of Sepsis TREATMENTS: Oxygen Monitoring of oxygenation status Transferring to In Hospice Thank you, Karen (This form is maintained as a part of the permanent medical record) 2014 [employer]. All Rights Reserved Karen Hollingsworth RN, CDIS [email or web address] [phone] MTDD
--- NOTE | 2018-11-16 10:25 | PQF ---
CHRA GRAY ZBIGNIEW A MD [id number] JODY WISEMAN [id number] CLINICAL DOCUMENTATION IMPROVEMENT CLARIFICATION FORM: ICD-10 Updated PLEASE DO AN ADDENDUM TO THE PROGRESS NOTE WITH ANY DOCUMENTATION UPDATES OR ADDITIONS AND CARRY THROUGH TO DC SUMMARY. THANK YOU. DATE: 11/16/2018 ATTN: DR. JOHNSON Please exercise your independent, professional judgment in responding to the clarification form. Clinical indicators are provided on the bottom of this form for your review Please check appropriate box(s): [ ] Encephalopathy: Type: [ x] Acute [ ] Subacute [ ] Chronic [ ] Acute on Chronic Etiology: [ ] Metabolic [ ] Hypoxic [ ] Septic [ ] Drug induced: [ ] Unspecified [ ] Other (please specify) [ ] Other diagnosis [ ] Unable to determine For continuity of documentation, please document condition throughout progress notes and discharge summary. Thank You. CLINICAL INDICATORS - SIGNS / SYMPTOMS / LABS Family brought patient to ER because of difficulty arousing. 11/15 Progress Note includes: Mental status most likely related to sepsis. 11/15 Progress Note also includes: A&O x0. 11/15 Progress Note also includes: Hypoxia with an 02 sat of 89% on Venturi Mask RISK FACTORS Hypoxia Elderly patient with Sepsis and Acute Renal Failure TREATMENTS: Transitioning to inpatient Hospice Thank You, Karen (This form is maintained as a part of the permanent medical record) 2015 [employer]. All Rights Reserved Karen Hollingsworth RN, CDIS [email or web address] [phone] [facility]LANDT[facility]
--- NOTE | 2018-11-16 10:34 | PQF ---
CHAR GRAY ZBIGNIEW A MD [id number] [facility] [id number] CLINICAL DOCUMENTATION IMPROVEMENT CLARIFICATION FORM: ICD-10 Updated PLEASE DO AN ADDENDUM TO THE PROGRESS NOTE WITH ANY DOCUMENTATION UPDATES OR ADDITIONS AND CARRY THROUGH TO DC SUMMARY. THANK YOU. DATE: 11/16/2018 ATTN: DR. JOHNSON Please exercise your independent, professional judgment in responding to the clarification form. Clinical indicators are provided on the bottom of this form for your review Please check appropriate box(s): [ ] Probable Acute Myocardial Infarction [ ] Demand Ischemia with Acute Myocardial Infarction in the setting of Sepsis [ x] Demand Ischemia without Acute Myocardial Infarction in the setting of Sepsis [ ] Unable to determine In addition, please specify: Present on Admission (POA): [ ] Yes [ ] No [ ] Unable to determine For continuity of documentation, please document condition throughout progress notes and discharge summary. Thank You. CLINICAL INDICATORS - SIGNS / SYMPTOMS/ LABS are present in the medical record: Troponin-I 11/14-1053: 0.043 11/14-1419: 0..077 11/14-1655: 0.120 RISK FACTORS Sepsis Respiratory Failure Acute Kidney Injury/Failure UTI Elderly Female TREATMENT Transitioning to Inpatient Hospice Thank you, Karen (This form is maintained as a part of the permanent medical record) 2015 [employer]. All Rights Reserved Karen Hollingsworth RN, CDIS [email or web address] [phone] MTDD
--- NOTE | 2018-11-16 12:33 | PRG ---
DATE OF SERVICE: 11/16/2018 SUBJECTIVE: This morning, she is awake, alert, and responsive. OBJECTIVE: VITAL SIGNS: Blood pressure is 124/72, sats are 92% on 4 L, respirations 20, and temperature 98. GENERAL: Surprisingly, she denies any pain, discomfort, or shortness of breath. CHEST: Decreased breath sounds. No wheezing. CARDIAC: Normal S1 and S2. ABDOMEN: No mass. IMPRESSION: Acute abdomen. PLAN: Discussed with Dr. Mcdermott. The patient and family do not want any intervention. They made her DNR. She is to go home today with Palliative Care. Job ID: [id number]
[2018-11-16] MEDS ORDERED: Lorazepam 2 MG/ML VIAL SLOW IVP SCH ×2 (15:45→17:00)
--- NOTE | 2018-11-17 12:38 | DIS ---
DATE OF ADMISSION: 11/14/2018 DATE OF DISCHARGE: 11/16/2018 DISCHARGE DISPOSITION: Home with home hospice. ADMISSION DIAGNOSES: 1. Toxic metabolic encephalopathy. 2. Suspected sepsis. 3. Hyponatremia. 4. Acute renal failure. DISCHARGE DIAGNOSES: 1. Perforated viscus with pneumoperitoneum. 2. Cervical spinal stenosis, with significant neurologic compromise, nonambulatory, history of trigeminal neuralgia. 3. Paroxysmal atrial fibrillation. 4. Essential hypertension. HOSPITAL COURSE: Ms. Garcia is an 88-year-old female, presenting to the hospital with confusion, initially felt secondary to sepsis from urinary source. However, she was subsequently found to have evidence of pneumoperitoneum/perforated viscus. General Surgery consultation undertaken, please see Dr. Mcdermott's dictated detailed consultation note. After much discussion, in light of her chronic frail condition and multiple medical comorbidities, surgical intervention declined, with decision made for comfort care. [facility] subsequently consulted, the patient will be transitioned to home under hospice care services. At the time of my evaluation, she appears fairly comfortable. Abdomen is distended, not particularly tender to palpation. Lungs are fairly clear. I spoke with her daughter, present in the room, questions answered. They were comfortable to proceed forward on comfort care, declining intervention of surgical services. CONSULTS DURING HOSPITAL STAY: 1. Nephrology, Kimberli Palomo MD. 2. General Surgery, Amrit Mcdermott MD. 3. Pulmonary Critical Care, Lefty Waldron MD. DISCHARGE INSTRUCTIONS: 1. Medications: Home medications for routine medical conditions have been discontinued. Select home medications can be resumed along with pain medicine as needed under the hospice care services. 2. Diet: Pleasure feeds as tolerated. 3. Transition of care. The patient will be transitioned to care with [facility]. CODE STATUS: Do not resuscitate. Total time spent on discharge/care coordination 35 minutes. Job ID: [id number]
== END 2018-11-16 16:24 | disposition hospice, home (50) | DRG 871 ==
LOC: ERS 10:51 → ERHOLD 13:04 → IMCU/EMU 18:05 → ONC 11-15 20:20
PROVIDERS: ADMIT Internal Medicine; ATTEND Internal Medicine
DX: A41.9 Sepsis, unspecified organism (principal); G93.41 Metabolic encephalopathy; J96.00 Acute respiratory failure, unspecified whether with hypoxia or hypercapnia; E87.1 Hypo-osmolality and hyponatremia; N17.9 Acute kidney failure, unspecified; N39.0 Urinary tract infection, site not specified; I24.8 Other forms of acute ischemic heart disease; I10 Essential (primary) hypertension; I48.0 Paroxysmal atrial fibrillation; B96.5 Pseudomonas (aeruginosa) (mallei) (pseudomallei) as the cause of diseases classified elsewhere; D64.9 Anemia, unspecified
CPT/HCPCS: 36415; 51701; 71045; 71260; 76770; 80048; 80053; 81003; 81015; 82553; 82805; 83605; 84484; 85007; 85025; 85027; 85060; 86850; 86900; 86901; 87040; 87077; 87086; 87149; 87186; 90471; 90670; 93005; 94640; 94760; 96360; 96365; 96367; G0009; J0696; J1580; J1644; J2060; J2185; J2920; J3370; J7050; J7620